=== PATIENT | male | born 1985 | race Caucasian/White ===

== ENCOUNTER 2017-05-21 16:42 | Emergency (ER) | payer SELFPAY ==
[2017-05-21 16:59] VITALS: BP 125/81; PULSE 85; TEMP 98.3; BMI 27.1
--- NOTE | 2017-05-21 17:01 | PDOC ---
History of Present Illness - General History Source: Patient Exam Limitations: No Limitations - History of Present Illness Initial Comments: 05/21/17 17:42 The patient is a 31 year old male with a significant past medical history of asthma, polysubstance abuse who presents to the ED with heroin overdose earlier today. Patient reports he was in his car when he injected himself with less than a bag of heroine. As per EMS, the patient loss consciousness and patient s friend called 911. EMS noted patient was apneic and cyanotic. Upon arrival to the ED, patient is breathing but tired. Patient states he was recently released from half-way and was clean from drugs while in half-way. Denies pain. Denies any other symptoms. <Dorothy Naylor - Last Filed: 05/21/17 17:42> - General History Source: Patient, EMS, Other Exam Limitations: No Limitations <Jhonny Bee - Last Filed: 05/21/17 19:50> - General Stated Complaint: Overdose Time Seen by Provider: 05/21/17 16:49 Past History <Dorothy Naylor - Last Filed: 05/21/17 17:42> - Past Medical History Anemia: No Asthma: No Cancer: No Cardiac Disorders: No CVA: No COPD: No Diabetes: No GI Disorders: No Disorders: No HTN: No Hypercholesterolemia: No Kidney Stones: No Liver Disease: No Suicide Attempt (Hx): Yes (ATTEMPTED HANGING SELG BUT FAILED IN 2001; DENIES S/ H IDEATION TODAY.) Seizures: No Thyroid Disease: No - Surgical History Abdominal Surgery: Yes (UMBILICAL HERNIA REPAIR,LT. INGUINAL HERNIA REPAIR) Appendectomy: No Cardiac Surgery: No Cholecystectomy: No Lung Surgery: No Neurologic Surgery: No Orthopedic Surgery: No - Reproductive History Testicular Surgery: No - Psycho/Social/Smoking Cessation Hx Anxiety: Yes Suicidal Ideation: No Smoking History: Current every day smoker Have you smoked in the past 12 months: Yes Number of Cigarettes Smoked Daily: 10 Cigars Per Day: 0 'Breaking Loose' booklet given: 09/03/16 Hx Alcohol Use: Yes (BEER) Drug/Substance Use Hx: Yes (COCAINE) Substance Use Type: Alcohol (beer 40 oz once twice a week.), Cocaine ($20 daily ), Heroin (started at age 24, on and off use, uses 2 bags a day), Tranquilizers Hx Substance Use Treatment: Yes ([facility]-DETOX/[facility] REH[facility]) <Jhonny Bee - Last Filed: 05/21/17 19:50> - Past Medical History Allergies/Adverse Reactions: Allergies Allergy/AdvReac Type Severity Reaction Status Date / Time No Known Allergies Allergy Verified 05/21/17 16:51 Home Medications: Ambulatory Orders Fluoxetine HCl [Prozac -] 10 mg PO DAILY #30 capsule 09/17/16 Gabapentin [Neurontin -] 300 mg PO TID #90 capsule 09/17/16 Review of Systems - Review of Systems Able to Perform ROS?: Yes Comments:: 05/21/17 17:42 GENERAL/CONSTITUTIONAL: + heroine overdose with LOC. No fever or chills. No weakness. HEAD, EYES, EARS, NOSE AND THROAT: No change in vision. No ear pain or discharge. No sore throat. CARDIOVASCULAR: No chest pain or shortness of breath. RESPIRATORY: No cough, wheezing, or hemoptysis. GASTROINTESTINAL: No nausea, vomiting, diarrhea or constipation. GENITOURINARY: No dysuria, frequency, or change in urination. MUSCULOSKELETAL: No joint or muscle swelling or pain. No neck or back pain. SKIN: No rash NEUROLOGIC: No headache, vertigo, or change in strength/sensation. ENDOCRINE: No increased thirst. No abnormal weight change. HEMATOLOGIC/LYMPHATIC: No anemia, easy bleeding, or history of blood clots. ALLERGIC/IMMUNOLOGIC: No hives or skin allergy. All Other Systems: Reviewed and Negative <Dorothy Naylor - Last Filed: 05/21/17 17:42> *Physical Exam - Vital Signs Last Vital Signs Temp Pulse Resp BP Pulse Ox 98.3 F 85 18 125/81 93 L 05/21/17 16:51 05/21/17 16:51 05/21/17 16:51 05/21/17 16:51 05/21/17 16:51 - Physical Exam Comments: 05/21/17 17:42 GENERAL: + speaking but sleepy appearing. HEAD: No signs of trauma EYES: PERRLA, EOMI, sclera anicteric, conjunctiva clear ENT: Auricles normal inspection, hearing grossly normal, nares patent, oropharynx clear without exudates. Moist mucosa NECK: Normal ROM, supple, no lymphadenopathy, JVD, or masses LUNGS: Breath sounds equal, clear to auscultation bilaterally. No wheezes, and no crackles HEART: Regular rate and rhythm, normal S1 and S2, no murmurs, rubs or gallops ABDOMEN: Soft, nontender, normoactive bowel sounds. No guarding, no rebound. No masses EXTREMITIES: Normal range of motion, no edema. No clubbing or cyanosis. No cords, erythema, or tenderness NEUROLOGICAL: Normal speech SKIN: Warm, Dry, normal turgor, no rashes or lesions noted. <Dorothy Naylor - Last Filed: 05/21/17 17:42> Heart Score/ECG Review #1 ECG reviewed & interpreted by me at: 18:10 05/21/17 19:50 NSR 67, no std/nadine, TWI III, normal axis, normal intervals, QTC 450 msec <Jhonny Bee - Last Filed: 05/21/17 19:50> ED Treatment Course - LABORATORY CBC & Chemistry Diagram: 05/21/17 17:05 05/21/17 17:05 <Dorothy Naylor - Last Filed: 05/21/17 17:42> - LABORATORY CBC & Chemistry Diagram: 05/21/17 17:33 05/21/17 17:33 <Jhonny Bee - Last Filed: 05/21/17 19:50> Medical Decision Making - Medical Decision Making 05/21/17 16:53 A portion of this note was written by the scribagatha, under my supervision. 31 year old male with history of asthma, polysubstance abuse presents with heroine overdose. The patient was recently released from half-way. Has been clean from drugs while in half-way. Today, he was in his car when he took less than a bag of heroine and injected himself. Went unconscious and pt's friend called 911. EMS noted the patient was apneic and cyanotic. EMS had given 0.4 mg narcan and then additional 1.0 mg narcan with good response. Pt is now breathing but tired. Denies pain. Denies injuries. Pt likely OD from heroine. Will observe on monitor and obtain labs. reassess. 05/21/17 19:44 CBC, BMP 05/21/17 17:33 05/21/17 17:33 CMP Sodium 140 mmol/L (136-145) 05/21/17 17:33 Potassium 4.0 mmol/L (3.5-5.1) 05/21/17 17:33 Chloride 105 mmol/L (98-107) 05/21/17 17:33 Carbon Dioxide 28 mmol/L (21-32) 05/21/17 17:33 Anion Gap 7 (8-16) L 05/21/17 17:33 BUN 22 mg/dL (7-18) H D 05/21/17 17:33 Creatinine 1.0 mg/dL (0.7-1.3) 05/21/17 17:33 Creat Clearance w eGFR > 60 (>60) 05/21/17 17:33 Random Glucose 164 mg/dL (74-106) H D 05/21/17 17:33 Calcium 8.2 mg/dL (8.5-10.1) L 05/21/17 17:33 Total Bilirubin 0.6 mg/dL (0.2-1.0) D 05/21/17 17:33 AST 47 U/L (15-37) H D 05/21/17 17:33 ALT 95 U/L (12-78) H D 05/21/17 17:33 Alkaline Phosphatase 59 U/L (45-117) 05/21/17 17:33 Creatine Kinase 190 IU/L (39-308) 05/21/17 18:26 Creatine Kinase Index 0.9 % (0.0-5.0) 05/21/17 17:33 CK-MB (CK-2) 1.713 ng/mL (0.5-3.6) 05/21/17 17:33 Troponin I 0.12 ng/ml (0.00-0.05) H D 05/21/17 18:26 Total Protein 7.2 g/dl (6.4-8.2) 05/21/17 17:33 Albumin 4.0 g/dl (3.4-5.0) 05/21/17 17:33 The patient has had initial troponin 0.07. His urine toxicology screen was positive for cocaine. The patient states that he thinks the heroin was cut with cocaine. We sent a repeat troponin which was 0.12. I had advised that the patient be admitted to the hospital given this is cocaine chest pain and concern for coronary vasospasm. However, after lengthy discussion with the patient and his mother, the patient insists that he would like to go home. He has no chest pain and does not want to stay in the hospital. I advised that myocardial infarction and can potentially occur these risks. However, the patient is alert and awake and has capacity. After discussion of risks, patient is able to verbalize the risks back to me. I will have the patient sign out AGAINST MEDICAL ADVICE. He will go home with his mother. <Jhonny Bee - Last Filed: 05/21/17 19:50> *DC/Admit/Observation/Transfer - Attestations Scribe Attestion: 05/21/17 17:43 Documentation prepared by Dorothy Naylor, acting as medical assistant per diem for Jhonny Bee MD <Dorothy Naylor - Last Filed: 05/21/17 17:42> - Discharge Dispostion Admit: No <Jhonny Bee - Last Filed: 05/21/17 19:50> Diagnosis at time of Disposition: Elevated troponin, Left against medical advice Drug overdose Qualifiers: Encounter type: initial encounter Injury intent: accidental or unintentional Qualified Code(s): T50.901A - Poisoning by unspecified drugs, medicaments and biological substances, accidental (unintentional), initial encounter - Discharge Dispostion Disposition: AGAINST MEDICAL ADVICE Condition at time of disposition: Stable - Patient Instructions Printed Discharge Instructions: DI for Drug Overdose in Adults Additional Instructions: You are leaving against medical advice. Your initial troponin is 0.07 and your second troponin is 0.12. Given the circumstances, you are advised to be admitted. If you develop chest pain or shortness of breath or worsening of symptoms, please return to the ER.
[2017-05-21] MEDS ORDERED: ONDANSETRON 4 MG/2 ML VIAL ONE (17:04)
[2017-05-21 17:38] LABS: BASOPHIL 1.2 % (0-2.0); EOSINOPHIL 0.3 % (0-4.5); MCH 30.7 pg (25.7-33.7); MCHC 34.3 g/dl (32.0-35.9); MEAN CELL VOLUME 89.5 fl (80-96); MEAN PLT VOLUME 9.1 fl (7.5-11.1); NEUTROPHILS 89.4 % (42.8-82.8); PLATELET COUNT 173 K/MM3 (134-434); RDW 12.7 % (11.9-15.9)
[2017-05-21 18:12] LABS: ANION GAP 7 (8-16); BILIRUBIN,TOTAL 0.6 mg/dL (0.2-1.0); CALCIUM 8.2 mg/dL (8.5-10.1); CO2 28 mmol/L (21-32); GLUCOSE,RANDOM 164 mg/dL (74-106); SGOT/AST 47 U/L (15-37); SGPT/ALT 95 U/L (12-78); TOT PROT 7.2 g/dl (6.4-8.2)
[2017-05-21 18:15] LABS: ALK PHOS 59 U/L (45-117); CPK 179 IU/L (39-308); TROPONIN I 0.07 ng/ml (0.00-0.05)
[2017-05-21 18:45] LABS: URINE APPEARANCE CLEAR; URINE BILIRUBIN 1+ (NEGATIVE); URINE BLOOD NEGATIVE (NEGATIVE); URINE COLOR LT. YELLOW; URINE GLUCOSE (UA) NEGATIVE (NEGATIVE); URINE KETONE TRACE (NEGATIVE); URINE LEUK ESTERASE NEGATIVE (NEGATIVE); URINE NITRITE NEGATIVE (NEGATIVE); URINE UROBILINOGEN 0.2 mg/dL (0.2-1.0)
[2017-05-21 18:46] LABS: URINE PROTEIN 1+ (NEGATIVE)
[2017-05-21 19:01] LABS: URINE BACTERIA RARE /hpf (NONE SEEN); URINE MUCUS RARE; URINE RBC 1 /hpf (0-3); URINE WBC 2 /hpf (3-5)
[2017-05-21 19:34] LABS: TROPONIN I 0.12 ng/ml (0.00-0.05)
[2017-05-21 19:36] LABS: URINE MARIJUANA THC NEGATIVE ng/ml (CUTOFF=50)
--- NOTE | 2017-05-22 10:24 | EKG ---
Test Reason : Blood Pressure : / mmHG Vent. Rate : 067 BPM Atrial Rate : 067 BPM P-R Int : 140 ms QRS Dur : 098 ms QT Int : 426 ms P-R-T Axes : 037 055 019 degrees QTc Int : 450 ms NORMAL SINUS RHYTHM NON-SPECIFIC INTRA-VENTRICULAR CONDUCTION DELAY NO PREVIOUS ECGS AVAILABLE Confirmed by SEDRICK BEAN MD ([id number]) on 05/22/2017 10:24:02 AM Referred By: Confirmed By:SEDRICK BEAN MD
== END 2017-05-21 19:51 | disposition left against medical advice (07) ==
LOC: JER 16:42
DX: T40.1X1A Poisoning by heroin, accidental (unintentional), initial encounter (principal); R77.8 Other specified abnormalities of plasma proteins; Y92.89 Other specified places as the place of occurrence of the external cause; F17.210 Nicotine dependence, cigarettes, uncomplicated; J45.909 Unspecified asthma, uncomplicated; Z91.5 Personal history of self-harm
CPT/HCPCS: 36415; 80053; 80307; 81003; 81015; 82553; 84484; 85025; 93005; 93010; 99284-25

== ENCOUNTER 2017-07-13 12:01 | Inpatient (IN) | payer SELFPAY ==
[2017-07-13 15:37] VITALS: BMI 27.6
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
[2017-07-13] MEDS ORDERED: MAGNESIUM CITRATE 300 ML BOTTLE PO PRN (20:23)
[2017-07-13] MEDS ORDERED: METHADONE HCL 10 MG TABLET (FOR DETOX USE ONLY) PO ONE ×2 (20:23→23:00)
[2017-07-13] MEDS ORDERED: guaiFENesin/D-METHORPHAN HB 10 ML UNIT-DOSE CUPS PO PRN (20:23)
[2017-07-13] MEDS ORDERED: IBUPROFEN 400 MG TABLET (FP) PO PRN (20:23)
[2017-07-13] MEDS ORDERED: MAG HYDROX/AL HYDROX/SIMETH 30 ML UNIT-DOSE CUP PO PRN (20:23)
[2017-07-13] MEDS ORDERED: MENTHOL/PHENOL 1 EACH UD MM PRN (20:23)
[2017-07-13] MEDS ORDERED: MAGNESIUM HYDROX 2400MG/30ML ORAL SUSPENSION 30 ML CUP PO PRN (20:23)
[2017-07-13] MEDS ORDERED: NICOTINE POLACRILEX 2 MG GUM BUC PRN (20:23)
[2017-07-13] MEDS ORDERED: LOPERAMIDE HCL 2 MG CAPSULE PO PRN (20:23)
[2017-07-13] MEDS ORDERED: ACETAMINOPHEN 325 MG TABLET (FP) PO PRN (20:23)
[2017-07-13] MEDS ORDERED: P-EPHED 60MG/TRIPROLIDI 2.5MG TABLET PO PRN (20:23)
[2017-07-13] MEDS ORDERED: AZITHROMYCIN 250 MG TABLET PO ONE (20:25)
[2017-07-13] MEDS: diazePAM 5 MG TABLET PO PRN (21:35)
[2017-07-13] MEDS: THIAMINE HCL 100 MG TABLET (FP) PO SCH (21:35)
[2017-07-13] MEDS: diphenhydrAMINE HCL 50 MG CAPSULE PO PRN (21:36)
[2017-07-13] MEDS ORDERED: ALBUTEROL SO4 18 GM HFA INHALER IH PRN (21:47)
[2017-07-13] MEDS ORDERED: ALBUTEROL SO4 18 GM HFA INHALER IH ONE (21:48)
[2017-07-13 23:17] LABS: URINE APPEARANCE CLEAR; URINE BILIRUBIN NEGATIVE (NEGATIVE); URINE BLOOD NEGATIVE (NEGATIVE); URINE COLOR YELLOW; URINE GLUCOSE (UA) NEGATIVE (NEGATIVE); URINE KETONE NEGATIVE (NEGATIVE); URINE NITRITE NEGATIVE (NEGATIVE); URINE PROTEIN NEGATIVE (NEGATIVE); URINE UROBILINOGEN NEGATIVE mg/dL (0.2-1.0)
[2017-07-14] MEDS: diazePAM 5 MG TABLET PO PRN ×4 (05:51→20:44)
[2017-07-14] MEDS ORDERED: METHADONE HCL 10 MG TABLET (FOR DETOX USE ONLY) PO ONE (10:00)
[2017-07-14 10:08] LABS: URINE LEUK ESTERASE Negative (NEGATIVE)
[2017-07-14 10:16] LABS: MCH 29.5 pg (25.7-33.7); MEAN CELL VOLUME 89.5 fl (80-96); MEAN PLT VOLUME 9.5 fl (7.5-11.1); PLATELET COUNT 165 K/MM3 (134-434); RDW 12.8 % (11.9-15.9); WHITE BLOOD COUNT 4.3 K/mm3 (4.0-10.0)
[2017-07-14 10:18] LABS: ALBUMIN 3.4 g/dl (3.4-5.0); ANION GAP 8 (8-16); BILIRUBIN,TOTAL 0.3 mg/dL (0.2-1.0); CO2 28 mmol/L (21-32); GLUCOSE,RANDOM 96 mg/dL (74-106); SGOT/AST 38 U/L (15-37); SGPT/ALT 70 U/L (12-78)
[2017-07-14 10:20] LABS: ALK PHOS 53 U/L (45-117); CALCIUM 8.7 mg/dL (8.5-10.1); CREATININE 0.8 mg/dL (0.7-1.3)
[2017-07-14] MEDS: NICOTINE 14 MG/24 HOURS TOPICAL PATCH TD SCH (10:28)
[2017-07-14] MEDS: PRENATAL VITAMINS W/ FOLIC ACID TABLET (FP) PO SCH (10:28)
[2017-07-14] MEDS: AZITHROMYCIN 250 MG TABLET PO SCH (10:29)
--- NOTE | 2017-07-14 11:13 | PN ---
BHS COWS - Scale Resting Pulse: 0= [place] 80 or Below Sweatin= Chills/Flushing Restless Observation: 3= Extraneous Movement Pupil Size: 2= Moderately Dilated Bone or Joint Aches: 4=Acute Joint/Muscle Pain Runny Nose/ Eye Tearin= Nasal Congestion GI Upset > 30mins: 1= Stomach Cramp Tremor Observation of Outstretched Hands: 1= Tremor [place] [employer], Not Seen Yawning Observation: 1= 1-2x During Session Anxiety or Irritability: 2=Irritable/Anxious Goose Flesh Skin: 0=Smooth Skin COWS Score: 16 BHS Progress Note (SOAP) Subjective: ANXIETY,SWEATS/CHILLS,NAUSEA,MUSCLE ACHES,FATIGUE,INTERMITTENT SLEEP. Objective: 07/14/17 11:11 Vital Signs Temperature 97.0 F L 07/14/17 10:02 Pulse Rate 78 07/14/17 10:02 Respiratory Rate 20 07/14/17 10:02 Blood Pressure 120/56 07/14/17 10:02 O2 Sat by Pulse Oximetry (%) Laboratory Last Values WBC 4.3 K/mm3 (4.0-10.0) D 07/14/17 07:00 RBC 4.68 M/mm3 (4.00-5.60) 07/14/17 07:00 Hgb 13.8 GM/dL (11.7-16.9) 07/14/17 07:00 Hct 41.8 % (35.4-49) 07/14/17 07:00 MCV 89.5 fl (80-96) 07/14/17 07:00 MCH 29.5 pg (25.7-33.7) 07/14/17 07:00 MCHC 33.0 g/dl (32.0-35.9) 07/14/17 07:00 RDW 12.8 % (11.9-15.9) 07/14/17 07:00 Plt Count 165 K/MM3 (134-434) 07/14/17 07:00 MPV 9.5 fl (7.5-11.1) 07/14/17 07:00 Sodium 139 mmol/L (136-145) 07/14/17 07:00 Potassium 3.7 mmol/L (3.5-5.1) 07/14/17 07:00 Chloride 103 mmol/L (98-107) 07/14/17 07:00 Carbon Dioxide 28 mmol/L (21-32) 07/14/17 07:00 Anion Gap 8 (8-16) 07/14/17 07:00 BUN 18 mg/dL (7-18) 07/14/17 07:00 Creatinine 0.8 mg/dL (0.7-1.3) 07/14/17 07:00 Creat Clearance w eGFR > 60 (>60) 07/14/17 07:00 Random Glucose 96 mg/dL (74-106) D 07/14/17 07:00 Calcium 8.7 mg/dL (8.5-10.1) 07/14/17 07:00 Total Bilirubin 0.3 mg/dL (0.2-1.0) D 07/14/17 07:00 AST 38 U/L (15-37) H 07/14/17 07:00 ALT 70 U/L (12-78) D 07/14/17 07:00 Alkaline Phosphatase 53 U/L (45-117) 07/14/17 07:00 Total Protein 7.0 g/dl (6.4-8.2) 07/14/17 07:00 Albumin 3.4 g/dl (3.4-5.0) 07/14/17 07:00 Urine Color Yellow 07/13/17 23:00 Urine Appearance Clear 07/13/17 23:00 Urine pH 5.0 (5.0-8.0) 07/13/17 23:00 Ur Specific [place] 1.025 (1.005-1.025) 07/13/17 23:00 Urine Protein Negative (NEGATIVE) 07/13/17 23:00 Urine Glucose (UA) Negative (NEGATIVE) 07/13/17 23:00 Urine Ketones Negative (NEGATIVE) 07/13/17 23:00 Urine Blood Negative (NEGATIVE) 07/13/17 23:00 Urine Nitrite Negative (NEGATIVE) 07/13/17 23:00 Urine Bilirubin Negative (NEGATIVE) 07/13/17 23:00 Urine Urobilinogen Negative mg/dL (0.2-1.0) 07/13/17 23:00 Ur Leukocyte Esterase Negative (NEGATIVE) 07/13/17 23:00 Assessment: 07/14/17 11:12 WITHDRAWAL SX Plan: CONTINUE DETOX ZOFRAN PRN DIRECTED FLEXERIL 10 MG PO TID
[2017-07-14] MEDS ORDERED: ONDANSETRON *ODT* 4 MG TABLET SL PRN (11:16)
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
[2017-07-14] MEDS: CYCLOBENZAPRINE HCL 10 MG TABLET (FP) PO SCH ×2 (14:36→22:03)
[2017-07-14] MEDS: SERTRALINE HCL 50 MG TABLET (FP) PO SCH (14:36)
[2017-07-14] MEDS ORDERED: ZOLPIDEM TARTRATE 10 MG TABLET (PARK CARE ONLY) PO PRN (22:00)
[2017-07-14] MEDS: diphenhydrAMINE HCL 50 MG CAPSULE PO PRN (22:04)
[2017-07-14] MEDS: THIAMINE HCL 100 MG TABLET (FP) PO SCH (22:04)
[2017-07-15] MEDS: diazePAM 5 MG TABLET PO PRN ×3 (05:42→22:06)
[2017-07-15] MEDS: CYCLOBENZAPRINE HCL 10 MG TABLET (FP) PO SCH ×3 (05:43→22:06)
[2017-07-15] MEDS: PRENATAL VITAMINS W/ FOLIC ACID TABLET (FP) PO SCH (10:40)
[2017-07-15] MEDS: AZITHROMYCIN 250 MG TABLET PO SCH (10:40)
[2017-07-15] MEDS: NICOTINE 14 MG/24 HOURS TOPICAL PATCH TD SCH (10:40)
[2017-07-15] MEDS: SERTRALINE HCL 50 MG TABLET (FP) PO SCH (10:40)
--- NOTE | 2017-07-15 10:43 | EKG ---
Test Reason : Blood Pressure : / mmHG Vent. Rate : 075 BPM Atrial Rate : 075 BPM P-R Int : 140 ms QRS Dur : 098 ms QT Int : 382 ms P-R-T Axes : 049 064 047 degrees QTc Int : 426 ms NORMAL SINUS RHYTHM INCOMPLETE RIGHT BUNDLE BRANCH BLOCK BORDERLINE ECG WHEN COMPARED WITH ECG OF 21-MAY-2017 18:08, NO SIGNIFICANT CHANGE WAS FOUND Confirmed by YADY GOOD MD ([id number]) on 07/15/2017 10:43:31 AM Referred By: Confirmed By:YADY GOOD MD
--- NOTE | 2017-07-15 11:13 | PN ---
BHS COWS - Scale Resting Pulse: 1= [place] 81-100 Sweatin= Chills/Flushing Restless Observation: 3= Extraneous Movement Pupil Size: 0= Normal to Room Light Bone or Joint Aches: 4=Acute Joint/Muscle Pain Runny Nose/ Eye Tearin= Nasal Congestion GI Upset > 30mins: 1= Stomach Cramp Tremor Observation of Outstretched Hands: 1= Tremor [place], Not Seen Yawning Observation: 2= >3x During Session Anxiety or Irritability: 2=Irritable/Anxious Goose Flesh Skin: 0=Smooth Skin COWS Score: 16 BHS Progress Note (SOAP) Subjective: IRRITABILITY,MUSCLE ACHES,FATIGUE. Objective: 07/15/17 11:12 Vital Signs Temperature 97.6 F 07/15/17 09:53 Pulse Rate 77 07/15/17 09:53 Respiratory Rate 18 07/15/17 09:53 Blood Pressure 108/76 07/15/17 09:53 O2 Sat by Pulse Oximetry (%) Laboratory Last Values WBC 4.3 K/mm3 (4.0-10.0) D 07/14/17 07:00 RBC 4.68 M/mm3 (4.00-5.60) 07/14/17 07:00 Hgb 13.8 GM/dL (11.7-16.9) 07/14/17 07:00 Hct 41.8 % (35.4-49) 07/14/17 07:00 MCV 89.5 fl (80-96) 07/14/17 07:00 MCH 29.5 pg (25.7-33.7) 07/14/17 07:00 MCHC 33.0 g/dl (32.0-35.9) 07/14/17 07:00 RDW 12.8 % (11.9-15.9) 07/14/17 07:00 Plt Count 165 K/MM3 (134-434) 07/14/17 07:00 MPV 9.5 fl (7.5-11.1) 07/14/17 07:00 Sodium 139 mmol/L (136-145) 07/14/17 07:00 Potassium 3.7 mmol/L (3.5-5.1) 07/14/17 07:00 Chloride 103 mmol/L (98-107) 07/14/17 07:00 Carbon Dioxide 28 mmol/L (21-32) 07/14/17 07:00 Anion Gap 8 (8-16) 07/14/17 07:00 BUN 18 mg/dL (7-18) 07/14/17 07:00 Creatinine 0.8 mg/dL (0.7-1.3) 07/14/17 07:00 Creat Clearance w eGFR > 60 (>60) 07/14/17 07:00 Random Glucose 96 mg/dL (74-106) D 07/14/17 07:00 Calcium 8.7 mg/dL (8.5-10.1) 07/14/17 07:00 Total Bilirubin 0.3 mg/dL (0.2-1.0) D 07/14/17 07:00 AST 38 U/L (15-37) H 07/14/17 07:00 ALT 70 U/L (12-78) D 07/14/17 07:00 Alkaline Phosphatase 53 U/L (45-117) 07/14/17 07:00 Total Protein 7.0 g/dl (6.4-8.2) 07/14/17 07:00 Albumin 3.4 g/dl (3.4-5.0) 07/14/17 07:00 Urine Color Yellow 07/13/17 23:00 Urine Appearance Clear 07/13/17 23:00 Urine pH 5.0 (5.0-8.0) 07/13/17 23:00 Ur Specific [place] 1.025 (1.005-1.025) 07/13/17 23:00 Urine Protein Negative (NEGATIVE) 07/13/17 23:00 Urine Glucose (UA) Negative (NEGATIVE) 07/13/17 23:00 Urine Ketones Negative (NEGATIVE) 07/13/17 23:00 Urine Blood Negative (NEGATIVE) 07/13/17 23:00 Urine Nitrite Negative (NEGATIVE) 07/13/17 23:00 Urine Bilirubin Negative (NEGATIVE) 07/13/17 23:00 Urine Urobilinogen Negative mg/dL (0.2-1.0) 07/13/17 23:00 Ur Leukocyte Esterase Negative (NEGATIVE) 07/13/17 23:00 RPR Titer Nonreactive (NONREACTIVE) 07/14/17 07:00 Assessment: 07/15/17 11:12 WITHDRAWAL SX Plan: CONTINUE DETOX
[2017-07-15] MEDS: THIAMINE HCL 100 MG TABLET (FP) PO SCH (22:06)
[2017-07-16] MEDS: CYCLOBENZAPRINE HCL 10 MG TABLET (FP) PO SCH (06:31)
[2017-07-16 09:42] VITALS: BP 117/78; PULSE 73; TEMP 96.3
[2017-07-16] MEDS ORDERED: METHADONE HCL 5 MG TABLET (FOR DETOX USE ONLY) PO ONE (10:00)
[2017-07-16] MEDS: diazePAM 5 MG TABLET PO PRN (10:30)
[2017-07-16] MEDS: PRENATAL VITAMINS W/ FOLIC ACID TABLET (FP) PO SCH (10:33)
[2017-07-16] MEDS: SERTRALINE HCL 50 MG TABLET (FP) PO SCH (10:33)
[2017-07-16] MEDS: NICOTINE 14 MG/24 HOURS TOPICAL PATCH TD SCH (10:34)
--- NOTE | 2017-07-16 10:45 | DS ---
[facility] Detox Discharge Summary Admission Date: 07/13/17 Discharge Date: 07/16/17 - History Present History: Opioid Dependence Additional Comments: DECLINED TO COMPLETE DETOX STATING 'I HAVE THINGS TO DO". ALERT O X 3. NAD. Pertinent Past History: ASTHMA HEP C HX ADHD HX GURDEEP - Physical Exam Results Vital Signs: Vital Signs Temperature 96.3 F L 07/16/17 09:41 Pulse Rate 73 07/16/17 09:41 Respiratory Rate 18 07/16/17 09:41 Blood Pressure 117/78 07/16/17 09:41 O2 Sat by Pulse Oximetry (%) Pertinent Admission Physical Exam Findings: WITHDRAWAL SX Laboratory Last Values WBC 4.3 K/mm3 (4.0-10.0) D 07/14/17 07:00 RBC 4.68 M/mm3 (4.00-5.60) 07/14/17 07:00 Hgb 13.8 GM/dL (11.7-16.9) 07/14/17 07:00 Hct 41.8 % (35.4-49) 07/14/17 07:00 MCV 89.5 fl (80-96) 07/14/17 07:00 MCH 29.5 pg (25.7-33.7) 07/14/17 07:00 MCHC 33.0 g/dl (32.0-35.9) 07/14/17 07:00 RDW 12.8 % (11.9-15.9) 07/14/17 07:00 Plt Count 165 K/MM3 (134-434) 07/14/17 07:00 MPV 9.5 fl (7.5-11.1) 07/14/17 07:00 Sodium 139 mmol/L (136-145) 07/14/17 07:00 Potassium 3.7 mmol/L (3.5-5.1) 07/14/17 07:00 Chloride 103 mmol/L (98-107) 07/14/17 07:00 Carbon Dioxide 28 mmol/L (21-32) 07/14/17 07:00 Anion Gap 8 (8-16) 07/14/17 07:00 BUN 18 mg/dL (7-18) 07/14/17 07:00 Creatinine 0.8 mg/dL (0.7-1.3) 07/14/17 07:00 Creat Clearance w eGFR > 60 (>60) 07/14/17 07:00 Random Glucose 96 mg/dL (74-106) D 07/14/17 07:00 Calcium 8.7 mg/dL (8.5-10.1) 07/14/17 07:00 Total Bilirubin 0.3 mg/dL (0.2-1.0) D 07/14/17 07:00 AST 38 U/L (15-37) H 07/14/17 07:00 ALT 70 U/L (12-78) D 07/14/17 07:00 Alkaline Phosphatase 53 U/L (45-117) 07/14/17 07:00 Total Protein 7.0 g/dl (6.4-8.2) 07/14/17 07:00 Albumin 3.4 g/dl (3.4-5.0) 07/14/17 07:00 Urine Color Yellow 07/13/17 23:00 Urine Appearance Clear 07/13/17 23:00 Urine pH 5.0 (5.0-8.0) 07/13/17 23:00 Ur Specific [place] 1.025 (1.005-1.025) 07/13/17 23:00 Urine Protein Negative (NEGATIVE) 07/13/17 23:00 Urine Glucose (UA) Negative (NEGATIVE) 07/13/17 23:00 Urine Ketones Negative (NEGATIVE) 07/13/17 23:00 Urine Blood Negative (NEGATIVE) 07/13/17 23:00 Urine Nitrite Negative (NEGATIVE) 07/13/17 23:00 Urine Bilirubin Negative (NEGATIVE) 07/13/17 23:00 Urine Urobilinogen Negative mg/dL (0.2-1.0) 07/13/17 23:00 Ur Leukocyte Esterase Negative (NEGATIVE) 07/13/17 23:00 RPR Titer Nonreactive (NONREACTIVE) 07/14/17 07:00 - Treatment Hospital Course: Discharged Condition Good - Medication Discharge Medications: Ambulatory Orders Fluoxetine HCl [Prozac -] 10 mg PO DAILY #30 capsule 09/17/16 Gabapentin [Neurontin -] 300 mg PO TID #90 capsule 09/17/16 - Diagnosis (1) Nicotine dependence Status: Active (2) Opioid dependence with withdrawal Status: Acute (3) Hepatitis C carrier Status: Chronic (4) Asthma Status: Chronic Qualifiers: Asthma severity: moderate Asthma persistence: persistent Asthma complication type: uncomplicated Qualified Code(s): J45.40 - Moderate persistent asthma, uncomplicated; J45.40 - Moderate persistent asthma, uncomplicated; J45.40 - Moderate persistent asthma, uncomplicated - AMA Did Patient Leave Against Medical Advice: Yes (AMA)
== END 2017-07-16 10:46 | disposition left against medical advice (07) | DRG 770 ==
LOC: YASAS 12:01 → Y3N 19:59
PROVIDERS: ADMIT Internal Medicine; ATTEND Internal Medicine
PROC: HZ2ZZZZ Detoxification Services for Substance Abuse Treatment (ICD-10-PCS; principal; 2017-07-13)
DX: F11.23 Opioid dependence with withdrawal (principal); F17.210 Nicotine dependence, cigarettes, uncomplicated; F41.9 Anxiety disorder, unspecified; F90.9 Attention-deficit hyperactivity disorder, unspecified type; J20.9 Acute bronchitis, unspecified; J45.40 Moderate persistent asthma, uncomplicated; B18.2 Chronic viral hepatitis C; Z91.5 Personal history of self-harm
CPT/HCPCS: 36415; 80053; 81003; 85027; 86593; 93005; 93010

== ENCOUNTER 2020-10-08 08:28 | Inpatient (IN) | payer OTHER ==
[2020-10-08 09:24] VITALS: BMI 29.2
[2020-10-08] MEDS ORDERED: MAGNESIUM CITRATE 300 ML BOTTLE PO PRN (09:34)
[2020-10-08] MEDS ORDERED: IBUPROFEN 400 MG TABLET (FP) PO PRN (09:34)
[2020-10-08] MEDS ORDERED: BISMUTH SUBSALICYLATE 262 MG/15 ML BTL PO PRN (09:34)
[2020-10-08] MEDS ORDERED: ACETAMINOPHEN 325 MG TABLET (FP) PO PRN ×2 (09:34)
[2020-10-08] MEDS ORDERED: MAG HYDROX/AL HYDROX/SIMETH 30 ML UNIT-DOSE CUP PO PRN (09:34)
[2020-10-08] MEDS ORDERED: ONDANSETRON *ODT* 4 MG TABLET SL PRN (09:34)
[2020-10-08] MEDS ORDERED: NICOTINE POLACRILEX 2 MG GUM BUC PRN (09:34)
[2020-10-08] MEDS ORDERED: MAGNESIUM HYDROX 2400MG/30ML ORAL SUSPENSION 30 ML CUP PO PRN (09:34)
[2020-10-08] MEDS ORDERED: METHOCARBAMOL 500 MG TABLET PO PRN (09:34)
[2020-10-08] MEDS ORDERED: LORazepam 1 MG TABLET PO PRN (09:34)
[2020-10-08] MEDS ORDERED: MENTHOL/PHENOL 1 EACH UD MM PRN (09:34)
[2020-10-08] MEDS: hydrOXYzine PAMOATE 25 MG CAPSULE (FP) PO SCH ×4 (11:08→22:12)
[2020-10-08] MEDS: LORazepam 2 MG TABLET PO SCH ×3 (11:09→22:12)
[2020-10-08] MEDS: NICOTINE 14 MG/24 HOURS TOPICAL PATCH TD SCH (11:11)
[2020-10-08] MEDS: PRENATAL VITAMINS W/ FOLIC ACID TABLET (FP) PO SCH (11:11)
[2020-10-08] MEDS ORDERED: MELATONIN 5 MG TABLETS PO SCH (22:00)
[2020-10-08] MEDS: SUVOREXANT 10 MG TABLET PO PRN (22:12)
[2020-10-08] MEDS: THIAMINE HCL 100 MG TABLET (FP) PO SCH (22:12)
[2020-10-09] MEDS: hydrOXYzine PAMOATE 25 MG CAPSULE (FP) PO SCH (05:48)
[2020-10-09] MEDS: LORazepam 2 MG TABLET PO SCH ×4 (05:48→22:07)
[2020-10-09] MEDS ORDERED: METHADONE HCL 40 MG DISPERSABLE TABLET PO ONE ×2 (09:15→10:00)
[2020-10-09] MEDS: NICOTINE 14 MG/24 HOURS TOPICAL PATCH TD SCH (10:30)
[2020-10-09] MEDS: PRENATAL VITAMINS W/ FOLIC ACID TABLET (FP) PO SCH (10:30)
[2020-10-09] MEDS: hydrOXYzine PAMOATE 50 MG CAPSULE (FP) PO SCH ×4 (10:30→22:07)
[2020-10-09 10:51] LABS: POTASSIUM 4.3 mmol/L (3.5-5.1)
[2020-10-09 10:52] LABS: HEMATOCRIT 40.4 % (35.4-49); HEMOGLOBIN 13.5 GM/dL (11.7-16.9); MCH 28.4 pg (25.7-33.7); MCHC 33.4 g/dl (32.0-35.9); RBC 4.75 M/mm3 (4.00-5.60); RDW 14.8 % (11.9-15.9); WHITE BLOOD COUNT 3.8 K/mm3 (4.0-10.0)
[2020-10-09 10:57] LABS: BLOOD UREA NITROGEN 15.5 mg/dL (7-18); CALCIUM 9.1 mg/dL (8.5-10.1)
[2020-10-09 10:58] LABS: ALBUMIN 3.7 g/dl (3.4-5.0)
[2020-10-09 11:00] LABS: CREATININE 0.9 mg/dL (0.55-1.3)
[2020-10-09 11:01] LABS: BILIRUBIN,TOTAL 0.8 mg/dL (0.2-1); TOT PROT 7.6 g/dl (6.4-8.2)
[2020-10-09 11:09] LABS: MEAN PLT VOLUME 9.8 fl (7.5-11.1); PLATELET COUNT 260 K/MM3 (134-434)
[2020-10-09 12:15] LABS: HIV INTERPRETATION NEGATIVE (NEGATIVE)
[2020-10-09] MEDS: THIAMINE HCL 100 MG TABLET (FP) PO SCH (22:07)
[2020-10-09] MEDS: SUVOREXANT 10 MG TABLET PO PRN (22:08)
[2020-10-10] MEDS: hydrOXYzine PAMOATE 50 MG CAPSULE (FP) PO SCH ×3 (01:46→10:00)
[2020-10-10] MEDS: LORazepam 1 MG TABLET PO SCH ×2 (05:40→10:00)
[2020-10-10] MEDS ORDERED: METHADONE HCL 40 MG DISPERSABLE TABLET PO SCH (06:00)
[2020-10-10 08:46] VITALS: BP 125/90; PULSE 118; TEMP 96.1
[2020-10-10] MEDS: PRENATAL VITAMINS W/ FOLIC ACID TABLET (FP) PO SCH (10:00)
[2020-10-10] MEDS: NICOTINE 14 MG/24 HOURS TOPICAL PATCH TD SCH (10:00)
[2020-10-11] MEDS ORDERED: LORazepam 0.5 MG TABLET PO PRN
[2020-10-11] MEDS ORDERED: LORazepam 0.5 MG TABLET PO SCH (05:00)
[2020-10-12] MEDS ORDERED: LORazepam 0.5 MG TABLET PO ONE (05:00)
== END 2020-10-10 10:34 | disposition home or self-care (01) | DRG 773 ==
LOC: YASAS 08:28 → Y6N 09:46
PROVIDERS: ADMIT Allergy & Immunology; ATTEND Allergy & Immunology
PROC: HZ2ZZZZ Detoxification Services for Substance Abuse Treatment (ICD-10-PCS; principal; 2020-10-08)
DX: F13.230 Sedative, hypnotic or anxiolytic dependence with withdrawal, uncomplicated (principal); F11.20 Opioid dependence, uncomplicated; F14.20 Cocaine dependence, uncomplicated; F16.20 Hallucinogen dependence, uncomplicated; F17.210 Nicotine dependence, cigarettes, uncomplicated; F41.1 Generalized anxiety disorder; F90.9 Attention-deficit hyperactivity disorder, unspecified type; F32.9 Major depressive disorder, single episode, unspecified; J45.40 Moderate persistent asthma, uncomplicated; B18.2 Chronic viral hepatitis C; Z62.810 Personal history of physical and sexual abuse in childhood; R63.4 Abnormal weight loss; Z68.29 Body mass index [BMI] 29.0-29.9, adult
CPT/HCPCS: 36415; 80053; 85027; 86780; 87389; C9803; U0003

== ENCOUNTER 2021-06-18 09:49 | Inpatient (IN) | payer OTHER ==
[2021-06-18 10:33] VITALS: BMI 25.0
[2021-06-18] MEDS ORDERED: P-EPHED 60MG/TRIPROLIDI 2.5MG TABLET PO PRN (11:29)
[2021-06-18] MEDS ORDERED: MAGNESIUM CITRATE 300 ML BOTTLE PO PRN (11:29)
[2021-06-18] MEDS ORDERED: MAGNESIUM HYDROX 2400MG/30ML ORAL SUSPENSION 30 ML CUP PO PRN (11:29)
[2021-06-18] MEDS ORDERED: guaiFENesin 200 MG/10 ML 10 ML UNIT-DOSE CUPS PO PRN (11:29)
[2021-06-18] MEDS ORDERED: MAG HYDROX/AL HYDROX/SIMETH 30 ML UNIT-DOSE CUP PO PRN (11:29)
[2021-06-18] MEDS ORDERED: ACETAMINOPHEN 325 MG TABLET (FP) PO PRN (11:29)
[2021-06-18] MEDS ORDERED: LOPERAMIDE HCL 2 MG CAPSULE PO PRN (11:29)
[2021-06-18] MEDS ORDERED: NICOTINE 7 MG/24 HOURS TOPICAL PATCH TD SCH (11:30)
[2021-06-18] MEDS: hydrOXYzine PAMOATE 25 MG CAPSULE (FP) PO SCH ×3 (16:39→23:06)
[2021-06-18] MEDS: PRENATAL VITAMINS W/ FOLIC ACID TABLET (FP) PO SCH (16:45)
[2021-06-18] MEDS: NICOTINE 14 MG/24 HOURS TOPICAL PATCH TD SCH (16:45)
[2021-06-18] MEDS: THIAMINE HCL 100 MG TABLET (FP) PO SCH (23:06)
[2021-06-18] MEDS: MELATONIN 5 MG TABLETS PO SCH (23:07)
[2021-06-19] MEDS: methaDONE HCL 40 MG DISPERSABLE TABLET PO SCH (06:33)
[2021-06-19] MEDS: hydrOXYzine PAMOATE 25 MG CAPSULE (FP) PO SCH ×2 (06:35→09:41)
[2021-06-19] MEDS: PRENATAL VITAMINS W/ FOLIC ACID TABLET (FP) PO SCH (09:41)
[2021-06-19] MEDS: NICOTINE 14 MG/24 HOURS TOPICAL PATCH TD SCH (09:41)
[2021-06-19 12:33] LABS: HEMATOCRIT 36.6 % (35.4-49); HEMOGLOBIN 12.3 GM/dL (11.7-16.9); MCH 27.6 pg (25.7-33.7); MCHC 33.7 g/dl (32.0-35.9); MEAN CELL VOLUME 81.9 fl (80-96); PLATELET COUNT 226 10^3/uL (134-434); RBC 4.47 M/mm3 (4.00-5.60); RDW 13.9 % (11.9-15.9); WHITE BLOOD COUNT 4.7 K/mm3 (4.0-10.0)
[2021-06-19 12:35] LABS: CALCIUM 8.3 mg/dL (8.5-10.1)
[2021-06-19 12:37] LABS: BLOOD UREA NITROGEN 11.1 mg/dL (7-18)
[2021-06-19 12:39] LABS: CREATININE 0.9 mg/dL (0.55-1.3)
[2021-06-19 12:40] LABS: BILIRUBIN,TOTAL 0.2 mg/dL (0.2-1); TOT PROT 6.6 g/dl (6.4-8.2)
[2021-06-19 12:59] LABS: SYPHILIS W/ RPR CONF NON-REACTIVE (NONREACTIVE)
[2021-06-19] MEDS: hydrOXYzine PAMOATE 25 MG CAPSULE (FP) PO PRN (21:10)
[2021-06-19] MEDS: THIAMINE HCL 100 MG TABLET (FP) PO SCH (21:10)
[2021-06-19] MEDS: MELATONIN 5 MG TABLETS PO SCH (23:22)
[2021-06-20] MEDS: methaDONE HCL 40 MG DISPERSABLE TABLET PO SCH (06:25)
[2021-06-20] MEDS: PRENATAL VITAMINS W/ FOLIC ACID TABLET (FP) PO SCH (09:53)
[2021-06-20] MEDS: NICOTINE 14 MG/24 HOURS TOPICAL PATCH TD SCH (09:53)
[2021-06-20 15:12] LABS: PH,URINE >= 9.0 (5.0-8.0); URINE APPEARANCE CLEAR; URINE BILIRUBIN NEGATIVE (NEGATIVE); URINE COLOR YELLOW; URINE GLUCOSE (UA) NEGATIVE (NEGATIVE); URINE KETONE NEGATIVE (NEGATIVE); URINE LEUK ESTERASE NEGATIVE (NEGATIVE); URINE NITRITE NEGATIVE (NEGATIVE); URINE PROTEIN NEGATIVE (NEGATIVE)
[2021-06-20] MEDS: THIAMINE HCL 100 MG TABLET (FP) PO SCH (22:01)
[2021-06-20] MEDS: MELATONIN 5 MG TABLETS PO SCH (22:02)
[2021-06-21] MEDS: methaDONE HCL 40 MG DISPERSABLE TABLET PO SCH (06:21)
[2021-06-21] MEDS: IBUPROFEN 400 MG TABLET (FP) PO PRN (09:49)
[2021-06-21] MEDS: PRENATAL VITAMINS W/ FOLIC ACID TABLET (FP) PO SCH (09:49)
[2021-06-21] MEDS: NICOTINE 14 MG/24 HOURS TOPICAL PATCH TD SCH (09:49)
[2021-06-21] MEDS: hydrOXYzine PAMOATE 25 MG CAPSULE (FP) PO PRN ×2 (09:49→21:00)
[2021-06-21] MEDS ORDERED: PT OWN MED DRAWER 7, Y5N ONE (11:23)
[2021-06-21] MEDS: METHOCARBAMOL 500 MG TABLET PO PRN (11:25)
[2021-06-21] MEDS: LIDOCAINE 5% TOPICAL PATCH TP SCH (11:25)
[2021-06-21] MEDS: SUVOREXANT 10 MG TABLET PO PRN (20:59)
[2021-06-21] MEDS: THIAMINE HCL 100 MG TABLET (FP) PO SCH (21:00)
[2021-06-21] MEDS: LIDOCAINE PATCH REMOVAL MC SCH (23:33)
[2021-06-22] MEDS: methaDONE HCL 40 MG DISPERSABLE TABLET PO SCH (06:21)
[2021-06-22] MEDS: NICOTINE 10 MG CARTRIDGE (INHALER) IH PRN ×3 (09:02→21:10)
[2021-06-22] MEDS: PRENATAL VITAMINS W/ FOLIC ACID TABLET (FP) PO SCH (09:02)
[2021-06-22] MEDS: LIDOCAINE 5% TOPICAL PATCH TP SCH (09:02)
[2021-06-22] MEDS: NICOTINE 14 MG/24 HOURS TOPICAL PATCH TD SCH (09:02)
[2021-06-22] MEDS: hydrOXYzine PAMOATE 25 MG CAPSULE (FP) PO PRN ×2 (09:04→21:10)
[2021-06-22] MEDS: SUVOREXANT 10 MG TABLET PO PRN (21:09)
[2021-06-22] MEDS: THIAMINE HCL 100 MG TABLET (FP) PO SCH (21:09)
[2021-06-22] MEDS: LIDOCAINE PATCH REMOVAL MC SCH (23:22)
[2021-06-23] MEDS ORDERED: MASKS NR ONE (01:22)
[2021-06-23] MEDS: methaDONE HCL 40 MG DISPERSABLE TABLET PO SCH (06:22)
[2021-06-23] MEDS: hydrOXYzine PAMOATE 25 MG CAPSULE (FP) PO PRN ×2 (09:25→21:15)
[2021-06-23] MEDS: METHOCARBAMOL 500 MG TABLET PO PRN ×2 (09:26→21:15)
[2021-06-23] MEDS: LIDOCAINE 5% TOPICAL PATCH TP SCH (09:26)
[2021-06-23] MEDS: PRENATAL VITAMINS W/ FOLIC ACID TABLET (FP) PO SCH (09:26)
[2021-06-23] MEDS: NICOTINE 14 MG/24 HOURS TOPICAL PATCH TD SCH (09:26)
[2021-06-23] MEDS: THIAMINE HCL 100 MG TABLET (FP) PO SCH (21:15)
[2021-06-23] MEDS: SUVOREXANT 10 MG TABLET PO PRN (21:16)
[2021-06-23] MEDS: NICOTINE 10 MG CARTRIDGE (INHALER) IH PRN (21:17)
[2021-06-23] MEDS: LIDOCAINE PATCH REMOVAL MC SCH (21:31)
[2021-06-24] MEDS: methaDONE HCL 40 MG DISPERSABLE TABLET PO SCH (06:22)
[2021-06-24] MEDS: METHOCARBAMOL 500 MG TABLET PO PRN ×2 (08:31→21:11)
[2021-06-24] MEDS: IBUPROFEN 400 MG TABLET (FP) PO PRN (08:32)
[2021-06-24] MEDS: NICOTINE 10 MG CARTRIDGE (INHALER) IH PRN ×2 (08:46→21:12)
[2021-06-24] MEDS: LIDOCAINE 5% TOPICAL PATCH TP SCH (09:08)
[2021-06-24] MEDS: NICOTINE 14 MG/24 HOURS TOPICAL PATCH TD SCH (09:08)
[2021-06-24] MEDS: PRENATAL VITAMINS W/ FOLIC ACID TABLET (FP) PO SCH (09:08)
[2021-06-24] MEDS ORDERED: PT OWN MED DRAWER 7, Y5N ONE (20:36)
[2021-06-24] MEDS: METHYL SALICYLATE/MENTHOL OINT 30 GM TUBE TP SCH (21:07)
[2021-06-24] MEDS: SUVOREXANT 10 MG TABLET PO PRN (21:10)
[2021-06-24] MEDS: hydrOXYzine PAMOATE 25 MG CAPSULE (FP) PO PRN (21:11)
[2021-06-24] MEDS: LIDOCAINE PATCH REMOVAL MC SCH (21:11)
[2021-06-24] MEDS: THIAMINE HCL 100 MG TABLET (FP) PO SCH (21:11)
[2021-06-25] MEDS: methaDONE HCL 40 MG DISPERSABLE TABLET PO SCH (06:14)
[2021-06-25] MEDS: NICOTINE 10 MG CARTRIDGE (INHALER) IH PRN ×3 (06:15→21:33)
[2021-06-25] MEDS: NICOTINE 14 MG/24 HOURS TOPICAL PATCH TD SCH (10:15)
[2021-06-25] MEDS: LIDOCAINE 5% TOPICAL PATCH TP SCH (10:15)
[2021-06-25] MEDS: PRENATAL VITAMINS W/ FOLIC ACID TABLET (FP) PO SCH (10:16)
[2021-06-25] MEDS: METHOCARBAMOL 500 MG TABLET PO PRN ×2 (10:18→21:32)
[2021-06-25] MEDS: hydrOXYzine PAMOATE 25 MG CAPSULE (FP) PO PRN ×2 (10:18→21:33)
[2021-06-25] MEDS: THIAMINE HCL 100 MG TABLET (FP) PO SCH (21:32)
[2021-06-25] MEDS: traZODone HCL 50 MG TABLET (FP) PO SCH (21:32)
[2021-06-25] MEDS: METHYL SALICYLATE/MENTHOL OINT 30 GM TUBE TP SCH (21:35)
[2021-06-25] MEDS: LIDOCAINE PATCH REMOVAL MC SCH (21:36)
[2021-06-25] MEDS ORDERED: PT OWN MED DRAWER 7, Y5N ONE (21:36)
[2021-06-26] MEDS: methaDONE HCL 40 MG DISPERSABLE TABLET PO SCH (06:32)
[2021-06-26] MEDS: PRENATAL VITAMINS W/ FOLIC ACID TABLET (FP) PO SCH (09:39)
[2021-06-26] MEDS: NICOTINE 14 MG/24 HOURS TOPICAL PATCH TD SCH (09:39)
[2021-06-26] MEDS: LIDOCAINE 5% TOPICAL PATCH TP SCH (09:39)
[2021-06-26] MEDS: METHOCARBAMOL 500 MG TABLET PO PRN ×2 (09:41→21:03)
[2021-06-26] MEDS: NICOTINE 10 MG CARTRIDGE (INHALER) IH PRN ×3 (09:41→21:05)
[2021-06-26] MEDS: hydrOXYzine PAMOATE 25 MG CAPSULE (FP) PO PRN ×2 (09:41→21:03)
[2021-06-26] MEDS: THIAMINE HCL 100 MG TABLET (FP) PO SCH (21:03)
[2021-06-26] MEDS: traZODone HCL 50 MG TABLET (FP) PO SCH (21:03)
[2021-06-26] MEDS: METHYL SALICYLATE/MENTHOL OINT 30 GM TUBE TP SCH (21:04)
[2021-06-26] MEDS: LIDOCAINE PATCH REMOVAL MC SCH (21:05)
[2021-06-27] MEDS: methaDONE HCL 40 MG DISPERSABLE TABLET PO SCH (06:31)
[2021-06-27] MEDS: NICOTINE 10 MG CARTRIDGE (INHALER) IH PRN ×2 (06:32→21:52)
[2021-06-27] MEDS: PRENATAL VITAMINS W/ FOLIC ACID TABLET (FP) PO SCH (09:27)
[2021-06-27] MEDS: LIDOCAINE 5% TOPICAL PATCH TP SCH (09:27)
[2021-06-27] MEDS: METHOCARBAMOL 500 MG TABLET PO PRN ×2 (09:28→21:48)
[2021-06-27] MEDS: NICOTINE 14 MG/24 HOURS TOPICAL PATCH TD SCH (09:28)
[2021-06-27] MEDS: hydrOXYzine PAMOATE 25 MG CAPSULE (FP) PO PRN ×2 (09:30→21:49)
[2021-06-27] MEDS: traZODone HCL 50 MG TABLET (FP) PO SCH (21:48)
[2021-06-27] MEDS: THIAMINE HCL 100 MG TABLET (FP) PO SCH (21:49)
[2021-06-27] MEDS: METHYL SALICYLATE/MENTHOL OINT 30 GM TUBE TP SCH (21:50)
[2021-06-27] MEDS: LIDOCAINE PATCH REMOVAL MC SCH (21:50)
[2021-06-28] MEDS: methaDONE HCL 40 MG DISPERSABLE TABLET PO SCH (06:07)
[2021-06-28] MEDS: NICOTINE 10 MG CARTRIDGE (INHALER) IH PRN ×3 (06:08→21:08)
[2021-06-28] MEDS: LIDOCAINE 5% TOPICAL PATCH TP SCH (09:28)
[2021-06-28] MEDS: NICOTINE 14 MG/24 HOURS TOPICAL PATCH TD SCH (09:29)
[2021-06-28] MEDS: PRENATAL VITAMINS W/ FOLIC ACID TABLET (FP) PO SCH (09:29)
[2021-06-28] MEDS: hydrOXYzine PAMOATE 25 MG CAPSULE (FP) PO PRN (09:31)
[2021-06-28] MEDS: METHOCARBAMOL 500 MG TABLET PO PRN ×2 (09:31→21:07)
[2021-06-28] MEDS: THIAMINE HCL 100 MG TABLET (FP) PO SCH (21:07)
[2021-06-28] MEDS: traZODone HCL 50 MG TABLET (FP) PO SCH (21:07)
[2021-06-28] MEDS: METHYL SALICYLATE/MENTHOL OINT 30 GM TUBE TP SCH (21:10)
[2021-06-28] MEDS ORDERED: PT OWN MED DRAWER 7, Y5N ONE (21:10)
[2021-06-28] MEDS: LIDOCAINE PATCH REMOVAL MC SCH (21:58)
[2021-06-29] MEDS: methaDONE HCL 40 MG DISPERSABLE TABLET PO SCH (06:18)
[2021-06-29] MEDS: NICOTINE 10 MG CARTRIDGE (INHALER) IH PRN ×3 (06:19→21:59)
[2021-06-29] MEDS: PRENATAL VITAMINS W/ FOLIC ACID TABLET (FP) PO SCH (10:07)
[2021-06-29] MEDS: NICOTINE 14 MG/24 HOURS TOPICAL PATCH TD SCH (10:07)
[2021-06-29] MEDS: hydrOXYzine PAMOATE 25 MG CAPSULE (FP) PO PRN ×2 (10:07→21:58)
[2021-06-29] MEDS: LIDOCAINE 5% TOPICAL PATCH TP SCH (10:07)
[2021-06-29] MEDS: METHYL SALICYLATE/MENTHOL OINT 30 GM TUBE TP SCH (21:57)
[2021-06-29] MEDS: traZODone HCL 50 MG TABLET (FP) PO SCH (21:58)
[2021-06-29] MEDS: METHOCARBAMOL 500 MG TABLET PO PRN (21:58)
[2021-06-29] MEDS: LIDOCAINE PATCH REMOVAL MC SCH (21:58)
[2021-06-29] MEDS: THIAMINE HCL 100 MG TABLET (FP) PO SCH (22:10)
[2021-06-30] MEDS: methaDONE HCL 40 MG DISPERSABLE TABLET PO SCH (06:34)
[2021-06-30] MEDS: NICOTINE 10 MG CARTRIDGE (INHALER) IH PRN ×3 (06:36→21:09)
[2021-06-30] MEDS: PRENATAL VITAMINS W/ FOLIC ACID TABLET (FP) PO SCH (09:34)
[2021-06-30] MEDS: NICOTINE 14 MG/24 HOURS TOPICAL PATCH TD SCH (09:35)
[2021-06-30] MEDS: LIDOCAINE 5% TOPICAL PATCH TP SCH (09:35)
[2021-06-30] MEDS: METHOCARBAMOL 500 MG TABLET PO PRN ×2 (09:36→21:09)
[2021-06-30] MEDS: hydrOXYzine PAMOATE 25 MG CAPSULE (FP) PO PRN ×2 (09:36→21:09)
[2021-06-30] MEDS: METHYL SALICYLATE/MENTHOL OINT 30 GM TUBE TP SCH (21:08)
[2021-06-30] MEDS: traZODone HCL 50 MG TABLET (FP) PO SCH (21:09)
[2021-06-30] MEDS: LIDOCAINE PATCH REMOVAL MC SCH (21:09)
[2021-06-30] MEDS: THIAMINE HCL 100 MG TABLET (FP) PO SCH (21:10)
[2021-06-30] MEDS ORDERED: PT OWN MED DRAWER 7, Y5N ONE (22:13)
[2021-07-01] MEDS: methaDONE HCL 40 MG DISPERSABLE TABLET PO SCH (06:34)
[2021-07-01] MEDS: NICOTINE 10 MG CARTRIDGE (INHALER) IH PRN (06:35)
[2021-07-01] MEDS: LIDOCAINE 5% TOPICAL PATCH TP SCH (09:35)
[2021-07-01] MEDS: NICOTINE 14 MG/24 HOURS TOPICAL PATCH TD SCH (09:35)
[2021-07-01] MEDS: PRENATAL VITAMINS W/ FOLIC ACID TABLET (FP) PO SCH (09:35)
[2021-07-01] MEDS: hydrOXYzine PAMOATE 25 MG CAPSULE (FP) PO PRN (09:36)
[2021-07-02] MEDS: LIDOCAINE PATCH REMOVAL MC SCH ×2 (00:15→21:11)
[2021-07-02] MEDS: traZODone HCL 50 MG TABLET (FP) PO SCH ×2 (00:15→21:07)
[2021-07-02] MEDS: THIAMINE HCL 100 MG TABLET (FP) PO SCH ×2 (00:15→21:07)
[2021-07-02] MEDS: METHYL SALICYLATE/MENTHOL OINT 30 GM TUBE TP SCH ×2 (00:15→21:11)
[2021-07-02] MEDS: methaDONE HCL 40 MG DISPERSABLE TABLET PO SCH (06:03)
[2021-07-02] MEDS: NICOTINE 10 MG CARTRIDGE (INHALER) IH PRN ×3 (06:04→21:08)
[2021-07-02] MEDS: PRENATAL VITAMINS W/ FOLIC ACID TABLET (FP) PO SCH (10:21)
[2021-07-02] MEDS: LIDOCAINE 5% TOPICAL PATCH TP SCH (10:21)
[2021-07-02] MEDS: hydrOXYzine PAMOATE 25 MG CAPSULE (FP) PO PRN ×2 (10:22→21:07)
[2021-07-02] MEDS: NICOTINE 14 MG/24 HOURS TOPICAL PATCH TD SCH (10:22)
[2021-07-02] MEDS: METHOCARBAMOL 500 MG TABLET PO PRN (10:22)
[2021-07-02] MEDS ORDERED: PT OWN MED DRAWER 7, Y5N ONE (21:10)
[2021-07-03] MEDS: methaDONE HCL 40 MG DISPERSABLE TABLET PO SCH (06:12)
[2021-07-03] MEDS: LIDOCAINE 5% TOPICAL PATCH TP SCH (09:41)
[2021-07-03] MEDS: NICOTINE 14 MG/24 HOURS TOPICAL PATCH TD SCH (09:41)
[2021-07-03] MEDS: PRENATAL VITAMINS W/ FOLIC ACID TABLET (FP) PO SCH (09:41)
[2021-07-03] MEDS: hydrOXYzine PAMOATE 25 MG CAPSULE (FP) PO PRN ×2 (09:42→21:05)
[2021-07-03] MEDS: METHOCARBAMOL 500 MG TABLET PO PRN ×2 (09:42→21:05)
[2021-07-03] MEDS: NICOTINE 10 MG CARTRIDGE (INHALER) IH PRN ×2 (09:42→21:07)
[2021-07-03] MEDS: traZODone HCL 50 MG TABLET (FP) PO SCH (21:03)
[2021-07-03] MEDS: METHYL SALICYLATE/MENTHOL OINT 30 GM TUBE TP SCH (21:52)
[2021-07-03] MEDS: LIDOCAINE PATCH REMOVAL MC SCH (21:53)
[2021-07-03] MEDS: THIAMINE HCL 100 MG TABLET (FP) PO SCH (21:53)
[2021-07-04] MEDS: methaDONE HCL 40 MG DISPERSABLE TABLET PO SCH (06:34)
[2021-07-04] MEDS: NICOTINE 14 MG/24 HOURS TOPICAL PATCH TD SCH (09:29)
[2021-07-04] MEDS: LIDOCAINE 5% TOPICAL PATCH TP SCH (09:29)
[2021-07-04] MEDS: hydrOXYzine PAMOATE 25 MG CAPSULE (FP) PO PRN ×2 (09:30→21:11)
[2021-07-04] MEDS: METHOCARBAMOL 500 MG TABLET PO PRN ×2 (09:30→21:10)
[2021-07-04] MEDS: PRENATAL VITAMINS W/ FOLIC ACID TABLET (FP) PO SCH (09:30)
[2021-07-04] MEDS: traZODone HCL 50 MG TABLET (FP) PO SCH (21:10)
[2021-07-04] MEDS: NICOTINE 10 MG CARTRIDGE (INHALER) IH PRN (21:10)
[2021-07-04] MEDS: LIDOCAINE PATCH REMOVAL MC SCH (21:12)
[2021-07-04] MEDS: THIAMINE HCL 100 MG TABLET (FP) PO SCH (22:02)
[2021-07-04] MEDS: METHYL SALICYLATE/MENTHOL OINT 30 GM TUBE TP SCH (22:02)
[2021-07-05] MEDS: methaDONE HCL 40 MG DISPERSABLE TABLET PO SCH (06:36)
[2021-07-05] MEDS: NICOTINE 10 MG CARTRIDGE (INHALER) IH PRN ×4 (06:36→21:32)
[2021-07-05] MEDS: LIDOCAINE 5% TOPICAL PATCH TP SCH (09:59)
[2021-07-05] MEDS: PRENATAL VITAMINS W/ FOLIC ACID TABLET (FP) PO SCH (09:59)
[2021-07-05] MEDS: NICOTINE 14 MG/24 HOURS TOPICAL PATCH TD SCH (09:59)
[2021-07-05] MEDS: hydrOXYzine PAMOATE 25 MG CAPSULE (FP) PO PRN ×2 (10:01→21:31)
[2021-07-05] MEDS: METHOCARBAMOL 500 MG TABLET PO PRN ×2 (10:01→21:31)
[2021-07-05] MEDS ORDERED: PT OWN MED DRAWER 7, Y5N ONE (20:15)
[2021-07-05] MEDS: traZODone HCL 50 MG TABLET (FP) PO SCH (21:31)
[2021-07-05] MEDS: METHYL SALICYLATE/MENTHOL OINT 30 GM TUBE TP SCH (21:31)
[2021-07-05] MEDS: LIDOCAINE PATCH REMOVAL MC SCH (21:32)
[2021-07-05] MEDS: THIAMINE HCL 100 MG TABLET (FP) PO SCH (21:32)
[2021-07-06] MEDS: methaDONE HCL 40 MG DISPERSABLE TABLET PO SCH (06:14)
[2021-07-06] MEDS: NICOTINE 10 MG CARTRIDGE (INHALER) IH PRN ×2 (06:16→09:43)
[2021-07-06] MEDS: LIDOCAINE 5% TOPICAL PATCH TP SCH (09:42)
[2021-07-06] MEDS: NICOTINE 14 MG/24 HOURS TOPICAL PATCH TD SCH (09:42)
[2021-07-06] MEDS: hydrOXYzine PAMOATE 25 MG CAPSULE (FP) PO PRN (09:43)
[2021-07-06] MEDS: PRENATAL VITAMINS W/ FOLIC ACID TABLET (FP) PO SCH (09:43)
[2021-07-06] MEDS: METHYL SALICYLATE/MENTHOL OINT 30 GM TUBE TP SCH (23:04)
[2021-07-06] MEDS: LIDOCAINE PATCH REMOVAL MC SCH (23:05)
[2021-07-06] MEDS: THIAMINE HCL 100 MG TABLET (FP) PO SCH (23:05)
[2021-07-06] MEDS: traZODone HCL 50 MG TABLET (FP) PO SCH (23:05)
[2021-07-07] MEDS: methaDONE HCL 40 MG DISPERSABLE TABLET PO SCH (06:10)
[2021-07-07] MEDS: LIDOCAINE 5% TOPICAL PATCH TP SCH (09:26)
[2021-07-07] MEDS: NICOTINE 14 MG/24 HOURS TOPICAL PATCH TD SCH (09:26)
[2021-07-07] MEDS: PRENATAL VITAMINS W/ FOLIC ACID TABLET (FP) PO SCH (09:26)
[2021-07-07] MEDS: NICOTINE 10 MG CARTRIDGE (INHALER) IH PRN ×2 (09:26→21:11)
[2021-07-07] MEDS: hydrOXYzine PAMOATE 25 MG CAPSULE (FP) PO PRN (09:26)
[2021-07-07] MEDS: METHYL SALICYLATE/MENTHOL OINT 30 GM TUBE TP SCH (23:10)
[2021-07-07] MEDS: traZODone HCL 50 MG TABLET (FP) PO SCH (23:10)
[2021-07-07] MEDS: THIAMINE HCL 100 MG TABLET (FP) PO SCH (23:11)
[2021-07-07] MEDS: LIDOCAINE PATCH REMOVAL MC SCH (23:11)
[2021-07-08] MEDS: NICOTINE 10 MG CARTRIDGE (INHALER) IH PRN (06:10)
[2021-07-08] MEDS: methaDONE HCL 40 MG DISPERSABLE TABLET PO SCH (06:11)
[2021-07-08 07:31] VITALS: BP 111/74; PULSE 56; TEMP 97.4
[2021-07-08] MEDS ORDERED: PT OWN MED DRAWER 7, Y5N ONE (07:53)
== END 2021-07-08 09:16 | disposition home or self-care (01) | DRG 772 ==
LOC: YASAS 09:49 → Y3E 10:47
PROVIDERS: ADMIT Allergy & Immunology; ATTEND Allergy & Immunology
PROC: HZ42ZZZ Group Counseling for Substance Abuse Treatment, Cognitive-Behavioral (ICD-10-PCS; principal; 2021-06-18)
DX: F10.20 Alcohol dependence, uncomplicated (principal); F11.20 Opioid dependence, uncomplicated; F14.20 Cocaine dependence, uncomplicated; F13.20 Sedative, hypnotic or anxiolytic dependence, uncomplicated; F16.20 Hallucinogen dependence, uncomplicated; F17.210 Nicotine dependence, cigarettes, uncomplicated; F41.9 Anxiety disorder, unspecified; F32.9 Major depressive disorder, single episode, unspecified; F90.9 Attention-deficit hyperactivity disorder, unspecified type; J45.20 Mild intermittent asthma, uncomplicated; M54.50 Low back pain, unspecified; G89.29 Other chronic pain; Z86.19 Personal history of other infectious and parasitic diseases
CPT/HCPCS: 36415; 80053; 81003; 85025; 85027; 86780; 86803; 87522; 93005; 93010; 99282-25; C9803; U0003; U0005

== ENCOUNTER 2022-06-08 10:52 | Inpatient (IN) | payer OTHER ==
[2022-06-08] MEDS ORDERED: SODIUM CHLORIDE 0.9% 500 ML INFUS.BAG IV ONE (11:17)
[2022-06-08] MEDS ORDERED: ACETAMINOPHEN 1000 MG/100 ML BAG IVPB ONE (11:17)
[2022-06-08] MEDS ORDERED: ONDANSETRON 4 MG/2 ML VIAL IVPUSH ONE (11:17)
[2022-06-08] MEDS ORDERED: ACETAMINOPHEN INJECTION 100 ML IVPB ONE (12:08)
[2022-06-08] MEDS ORDERED: ONDANSETRON 4 MG/2 ML VIAL ONE (12:08)
[2022-06-08 12:34] LABS: HEMATOCRIT 37.4 % (35.4-49); HEMOGLOBIN 12.4 GM/dL (11.7-16.9); MCH 27.5 pg (25.7-33.7); MCHC 33.1 g/dl (32.0-35.9); MEAN CELL VOLUME 83.1 fl (80-96); MEAN PLT VOLUME 9.7 fl (7.5-11.1); PLATELET COUNT 159 10^3/uL (134-434); RDW 12.7 % (11.9-15.9); WHITE BLOOD COUNT 15.7 K/mm3 (4.0-10.0)
[2022-06-08] MEDS ORDERED: METOCLOPRAMIDE HCL INJECTION 10 MG/2 ML VIAL IVPB ONE (12:36)
[2022-06-08 12:44] LABS: INR 1.15 (0.83-1.09); PROTHROMBIN TIME (PATIENT) 13.2 SEC (9.7-13.0)
[2022-06-08 12:46] LABS: ACTIVATED PTT 27.1 SECONDS (25.2-36.5)
[2022-06-08] MEDS ORDERED: METOCLOPRAMIDE HCL INJECTION 10 MG/2 ML VIAL ONE (12:48)
[2022-06-08 12:49] LABS: BLOOD UREA NITROGEN 15.6 mg/dL (7-18); MAGNESIUM 1.8 mg/dL (1.8-2.4)
[2022-06-08 12:50] LABS: ALBUMIN 3.4 g/dl (3.4-5.0)
[2022-06-08 12:53] LABS: CREATININE 0.9 mg/dL (0.55-1.3)
[2022-06-08 12:54] LABS: BILIRUBIN,TOTAL 0.5 mg/dL (0.2-1)
[2022-06-08 12:56] LABS: TOT PROT 7.5 g/dl (6.4-8.2)
[2022-06-08 13:20] LABS: URINE APPEARANCE CLEAR; URINE BILIRUBIN NEGATIVE (NEGATIVE); URINE COLOR YELLOW; URINE GLUCOSE (UA) NEGATIVE (NEGATIVE); URINE KETONE 1+ (NEGATIVE); URINE LEUK ESTERASE NEGATIVE (NEGATIVE); URINE NITRITE NEGATIVE (NEGATIVE); URINE PROTEIN TRACE (NEGATIVE)
[2022-06-08 13:36] LABS: URINE BARBITURATES NEGATIVE (NEGATIVE)
[2022-06-08 13:37] LABS: URINE AMPHETAMINES NEGATIVE (NEGATIVE)
[2022-06-08 13:42] LABS: COCAINE, UR POSITIVE (NEGATIVE); METHADONE, UR POSITIVE (NEGATIVE); OPIATES, URI POSITIVE (NEGATIVE); PHENCYCLIDINE,URINE POSITIVE (NEGATIVE); URINE BENZODIAZEPINES POSITIVE (NEGATIVE)
[2022-06-08 13:51] LABS: ANISOCYTOSIS 0; MACROCYTOSIS 0
[2022-06-08] MEDS ORDERED: FAMOTIDINE 20 MG/50 ML IVPB 20 MG/50 ML MG IVPB ONE ×2 (14:38→15:27)
[2022-06-08] MEDS ORDERED: CEFTRIAXONE 2,000 MG in DEXTROSE 5%-WATER - 50 ML IVPB ONE (14:41)
[2022-06-08] MEDS ORDERED: VANCOMYCIN/WATER 2 GM/400 ML PREMIX BAG IVPB ONE (14:42)
[2022-06-08] MEDS ORDERED: CEFTRIAXONE 2 GM/100 ML BAG IVPB ONE (15:05)
[2022-06-08 19:56] LABS: CSF APPEARANCE TURBID (CLEAR); CSF COLOR PINK (COLORLESS); CSF WBC 4 mm3 (0-5)
[2022-06-08 21:57] LABS: BF GLUCOSE (CSF ONLY) 54 mg/dL (40-70)
[2022-06-08 23:00] VITALS: BMI 37.4
[2022-06-09] MEDS ORDERED: ONDANSETRON 4 MG/2 ML VIAL IVPUSH PRN (00:35)
[2022-06-09] MEDS: LACTATED RINGERS SOLUTION 1,000 ML IV SCH (01:37)
[2022-06-09] MEDS: PIPERACILLIN/TAZOB 3.375 GM 3.375 GM in DEXTROSE 5%-WATER - 50 ML IVPB SCH ×3 (02:19→17:42)
[2022-06-09] MEDS ORDERED: VANCOMYCIN/WATER 1,250 MG/250 ML BAG (RESTRICTED TO ID ONLY) IVPB ONE (05:00)
[2022-06-09] MEDS ORDERED: methaDONE HCL 10 MG TABLET PO SCH (07:45)
[2022-06-09 09:43] LABS: INR 1.1 (0.83-1.09); PROTHROMBIN TIME (PATIENT) 12.7 SEC (9.7-13.0)
[2022-06-09 09:45] LABS: ACTIVATED PTT 27.7 SECONDS (25.2-36.5)
[2022-06-09 09:53] LABS: HEMATOCRIT 41.1 % (35.4-49); HEMOGLOBIN 13.7 GM/dL (11.7-16.9); MCH 27.8 pg (25.7-33.7); MCHC 33.4 g/dl (32.0-35.9); MEAN CELL VOLUME 83.4 fl (80-96); MEAN PLT VOLUME 10.2 fl (7.5-11.1); PLATELET COUNT 133 10^3/uL (134-434); RBC 4.93 M/mm3 (4.00-5.60); RDW 12.7 % (11.9-15.9); WHITE BLOOD COUNT 8.1 K/mm3 (4.0-10.0)
[2022-06-09] MEDS: ENOXAPARIN NA (PORCINE) 40 MG/0.4 ML DISP.SYRIN SQ SCH (10:07)
[2022-06-09 10:18] LABS: ALBUMIN 3.2 g/dl (3.4-5.0); BLOOD UREA NITROGEN 11.8 mg/dL (7-18); CALCIUM 8.7 mg/dL (8.5-10.1); MAGNESIUM 1.7 mg/dL (1.8-2.4)
[2022-06-09 10:21] LABS: BILIRUBIN,DIRECT 0.2 mg/dL (0.0-0.2); CREATININE 0.8 mg/dL (0.55-1.3)
[2022-06-09 10:22] LABS: BILIRUBIN,TOTAL 0.4 mg/dL (0.2-1); TOT PROT 7.1 g/dl (6.4-8.2)
[2022-06-09] MEDS ORDERED: TRIMETHOBENZAMIDE HCL 200MG/2ML INJ IM PRN (10:22)
[2022-06-09 11:31] LABS: HIV INTERPRETATION NEGATIVE (NEGATIVE)
[2022-06-09] MEDS: ACETAMINOPHEN 325 MG TABLET (FP) PO PRN ×2 (11:59→22:30)
[2022-06-09 12:26] LABS: ANISOCYTOSIS 2+; MACROCYTOSIS 0; OVALOCYTE 2+; TEAR DROP CELLS 1+
[2022-06-09] MEDS: VANCOMYCIN/WATER 1250 MG 1,250 MG/250 ML BAG IVPB SCH (15:58)
[2022-06-10] MEDS: PIPERACILLIN/TAZOB 3.375 GM 3.375 GM in DEXTROSE 5%-WATER - 50 ML IVPB SCH ×2 (02:54→09:44)
[2022-06-10] MEDS: LACTATED RINGERS SOLUTION 1,000 ML IV SCH (04:18)
[2022-06-10] MEDS: VANCOMYCIN/WATER 1250 MG 1,250 MG/250 ML BAG IVPB SCH (04:18)
[2022-06-10 06:56] VITALS: BP 145/87; PULSE 107; RESP 20; TEMP 98.5
[2022-06-10] MEDS ORDERED: PIPERACILLIN/TAZOBACTAM 3.375 GM VIAL IVPB ONE ×2 (09:34→09:39)
[2022-06-10] MEDS: ENOXAPARIN NA (PORCINE) 40 MG/0.4 ML DISP.SYRIN SQ SCH (09:45)
[2022-06-13 10:07] LABS: LYME PCR CSF Negative (Negative)
[2022-06-17 17:07] LABS: MUMPS AB IGG CSF < 5.0 AU/mL (<=10.9)
== END 2022-06-10 11:59 | disposition left against medical advice (07) | DRG 770 ==
LOC: JER 10:52 → JERBED 17:51 → J8W 22:10
PROVIDERS: ADMIT Family Medicine; ATTEND Internal Medicine
PROC: 009U3ZZ Drainage of Spinal Canal, Percutaneous Approach (ICD-10-PCS; principal; 2022-06-08)
DX: F11.23 Opioid dependence with withdrawal (principal); R50.9 Fever, unspecified; R19.7 Diarrhea, unspecified; R51.9 Headache, unspecified; D72.829 Elevated white blood cell count, unspecified
CPT/HCPCS: 0241U-QW; 36415; 70450-TC; 70551-TC; 71045-TC-FY; 76937; 76999; 80048; 80053; 80076; 80307; 81003; 82945; 82962; 83690; 83735; 84157; 84443; 84484; 85025; 85610; 85651; 85730; 86140; 86592; 86644; 86694; 86735; 86765; 86777; 86787; 86788; 86789; 87040; 87070; 87086; 87186; 87205; 87252; 87255; 87389; 87476; 87899; 93005; 93010; 93308; 99285-25

== ENCOUNTER 2022-11-04 10:14 | Inpatient (IN) | payer OTHER ==
[2022-11-04 10:49] VITALS: BMI 36.6
[2022-11-04] MEDS ORDERED: IBUPROFEN 400 MG TABLET (FP) PO PRN (10:59)
[2022-11-04] MEDS ORDERED: BISMUTH SUBSALICYLATE 262 MG/15 ML BTL PO PRN (10:59)
[2022-11-04] MEDS ORDERED: BENZOCAINE/MENTHOL (CHLORASEPTIC ) LOZENGE MM PRN (10:59)
[2022-11-04] MEDS ORDERED: ONDANSETRON *ODT* 4 MG TABLET SL PRN (10:59)
[2022-11-04] MEDS ORDERED: LOPERAMIDE HCL 2 MG CAPSULE PO PRN (10:59)
[2022-11-04] MEDS ORDERED: ACETAMINOPHEN 325 MG TABLET (FP) PO PRN ×2 (10:59)
[2022-11-04] MEDS ORDERED: DICYCLOMINE HCL 10 MG CAPSULE PO PRN (10:59)
[2022-11-04] MEDS ORDERED: MAG HYDROX/AL HYDROX/SIMETH 30 ML UNIT-DOSE CUP PO PRN (10:59)
[2022-11-04] MEDS ORDERED: NICOTINE POLACRILEX 2 MG GUM BUC PRN (10:59)
[2022-11-04] MEDS ORDERED: POLYETHYLENE GLYCOL (HEALTHYLAX) 3350 17 GM PACKET PO PRN (10:59)
[2022-11-04] MEDS ORDERED: NALOXONE HCL (KLOXXADO) 8 MG SPRAY NS PRN (10:59)
[2022-11-04] MEDS ORDERED: MAGNESIUM HYDROX 2400MG/30ML ORAL SUSPENSION 30 ML CUP PO PRN (10:59)
[2022-11-04] MEDS: chlordiazePOXIDE HCL 25 MG CAPSULE PO SCH ×3 (12:04→22:38)
[2022-11-04] MEDS: PRENATAL VITAMINS W/ FOLIC ACID TABLET (FP) PO SCH (12:05)
[2022-11-04 14:50] LABS: HEMATOCRIT 35.1 % (35.4-49); HEMOGLOBIN 12.1 GM/dL (11.7-16.9); MCH 28.2 pg (25.7-33.7); MCHC 34.3 g/dl (32.0-35.9); MEAN CELL VOLUME 82.3 fl (80-96); MEAN PLT VOLUME 8.3 fl (7.5-11.1); PLATELET COUNT 239 10^3/uL (134-434); RBC 4.27 M/mm3 (4.00-5.60); RDW 13.7 % (11.9-15.9); WHITE BLOOD COUNT 5.3 K/mm3 (4.0-10.0)
[2022-11-04] MEDS: METHOCARBAMOL 500 MG TABLET PO PRN (18:02)
[2022-11-04 18:50] LABS: ALBUMIN 3.9 g/dl (3.4-5.0)
[2022-11-04 18:51] LABS: BLOOD UREA NITROGEN 17.4 mg/dL (7-18)
[2022-11-04 18:53] LABS: CREATININE 0.9 mg/dL (0.55-1.3)
[2022-11-04 18:55] LABS: TOT PROT 8.2 g/dl (6.4-8.2)
[2022-11-04 18:56] LABS: BILIRUBIN,TOTAL 0.4 mg/dL (0.2-1)
[2022-11-04] MEDS ORDERED: chlordiazePOXIDE HCL 25 MG CAPSULE PO ONE (20:38)
[2022-11-04] MEDS: THIAMINE HCL 100 MG TABLET (FP) PO SCH (22:38)
[2022-11-04] MEDS: MELATONIN 5 MG TABLETS PO SCH (22:38)
[2022-11-04] MEDS: IBUPROFEN 600 MG TABLET (FP) PO PRN (22:39)
[2022-11-05] MEDS: chlordiazePOXIDE HCL 25 MG CAPSULE PO SCH ×4 (05:13→22:08)
[2022-11-05] MEDS ORDERED: methaDONE HCL 10 MG TABLET PO SCH (06:00)
[2022-11-05] MEDS: NICOTINE 10 MG CARTRIDGE (INHALER) IH PRN ×2 (07:23→13:09)
[2022-11-05] MEDS: PRENATAL VITAMINS W/ FOLIC ACID TABLET (FP) PO SCH (10:12)
[2022-11-05] MEDS: IBUPROFEN 600 MG TABLET (FP) PO PRN (13:11)
[2022-11-05] MEDS: METHOCARBAMOL 500 MG TABLET PO PRN ×2 (13:11→22:08)
[2022-11-05] MEDS ORDERED: chlordiazePOXIDE HCL 25 MG CAPSULE PO PRN (13:18)
[2022-11-05] MEDS: MELATONIN 5 MG TABLETS PO SCH (22:07)
[2022-11-05] MEDS: THIAMINE HCL 100 MG TABLET (FP) PO SCH (22:08)
[2022-11-05 22:36] VITALS: RESP 16
[2022-11-06] MEDS ORDERED: chlordiazePOXIDE HCL 25 MG CAPSULE PO SCH (05:00)
[2022-11-06] MEDS: NICOTINE 10 MG CARTRIDGE (INHALER) IH PRN (05:27)
[2022-11-06 06:12] VITALS: BP 123/80; PULSE 70; TEMP 98.2
[2022-11-07] MEDS ORDERED: chlordiazePOXIDE HCL 10 MG CAPSULE PO SCH (05:00)
[2022-11-08] MEDS ORDERED: chlordiazePOXIDE HCL 10 MG CAPSULE PO SCH (05:00)
[2022-11-09] MEDS ORDERED: chlordiazePOXIDE HCL 10 MG CAPSULE PO ONE (05:00)
== END 2022-11-06 08:52 | disposition left against medical advice (07) | DRG 770 ==
LOC: YASAS 10:14 → Y3N 11:05
PROVIDERS: ADMIT Allergy & Immunology; ATTEND Family Medicine
PROC: HZ2ZZZZ Detoxification Services for Substance Abuse Treatment (ICD-10-PCS; principal; 2022-11-04)
DX: F11.23 Opioid dependence with withdrawal (principal); F10.230 Alcohol dependence with withdrawal, uncomplicated; F14.20 Cocaine dependence, uncomplicated; F15.20 Other stimulant dependence, uncomplicated; F17.210 Nicotine dependence, cigarettes, uncomplicated; F41.9 Anxiety disorder, unspecified; F32.A Depression, unspecified; Z86.19 Personal history of other infectious and parasitic diseases
CPT/HCPCS: 36415; 80053; 85027; 86780; C9803-CS; U0003; U0005

== ENCOUNTER 2024-04-11 23:56 | Inpatient (IN) | payer OTHER ==
[2024-04-12 01:02] VITALS: BMI 30.5
[2024-04-12] MEDS ORDERED: LOPERAMIDE HCL 2 MG CAPSULE PO PRN (02:13)
[2024-04-12] MEDS ORDERED: DICYCLOMINE HCL 10 MG CAPSULE PO PRN (02:13)
[2024-04-12] MEDS ORDERED: IBUPROFEN 400 MG TABLET (FP) PO PRN (02:13)
[2024-04-12] MEDS ORDERED: ONDANSETRON *ODT* 4 MG TABLET SL PRN (02:13)
[2024-04-12] MEDS ORDERED: NALOXONE HCL 0.4 MG/ML VIAL IM PRN (02:13)
[2024-04-12] MEDS ORDERED: BENZONATATE 200 MG CAPSULE PO PRN (02:13)
[2024-04-12] MEDS ORDERED: POLYETHYLENE GLYCOL (HEALTHYLAX) 3350 17 GM PACKET PO PRN (02:13)
[2024-04-12] MEDS ORDERED: BISMUTH SUBSALICYLATE 524 MG/30 ML PO PRN (02:13)
[2024-04-12] MEDS ORDERED: IBUPROFEN 600 MG TABLET (FP) PO PRN (02:13)
[2024-04-12] MEDS ORDERED: NALOXONE (NARCAN) HCL 4 MG/0.1 ML SPRAY NS PRN (02:13)
[2024-04-12] MEDS ORDERED: MAGNESIUM HYDROX 2400MG/30ML ORAL SUSPENSION 30 ML CUP PO PRN (02:13)
[2024-04-12] MEDS ORDERED: MAG HYDROX/AL HYDROX/SIMETH 30 ML UNIT-DOSE CUP PO PRN (02:13)
[2024-04-12] MEDS ORDERED: guaiFENesin 600 MG TABLET.ER (FP) PO PRN (02:13)
[2024-04-12] MEDS ORDERED: BENZOCAINE/MENTHOL (CHLORASEPTIC ) LOZENGE MM PRN (02:13)
[2024-04-12] MEDS ORDERED: ACETAMINOPHEN 325 MG TABLET (FP) PO PRN (02:13)
[2024-04-12] MEDS ORDERED: methaDONE HCL 10 MG TABLET PO SCH (08:45)
[2024-04-12] MEDS: PRENATAL VITAMINS W/ FOLIC ACID TABLET (FP) PO SCH (10:15)
[2024-04-12] MEDS: NICOTINE 14 MG/24 HOURS TOPICAL PATCH TD SCH (10:15)
[2024-04-12] MEDS: chlordiazePOXIDE HCL 25 MG CAPSULE PO SCH (10:15)
[2024-04-12] MEDS: chlordiazePOXIDE HCL 25 MG CAPSULE PO PRN (19:59)
[2024-04-12] MEDS: THIAMINE 100 MG TABLET PO SCH (22:12)
[2024-04-12] MEDS: MELATONIN 5 MG TABLETS PO SCH (22:13)
[2024-04-12] MEDS: NICOTINE POLACRILEX 2 MG GUM BUC PRN (22:35)
[2024-04-13] MEDS: hydrOXYzine PAMOATE 25 MG CAPSULE (FP) PO PRN (08:37)
[2024-04-13] MEDS: METHOCARBAMOL 500 MG TABLET PO PRN (08:38)
[2024-04-13 11:45] LABS: HEMOGLOBIN 12.6 GM/dL (11.7-16.9); MCHC 34.1 g/dl (32.0-35.9); MEAN PLT VOLUME 11.2 fl (7.5-11.1); PLATELET COUNT 200 10^3/uL (134-434); RBC 4.35 M/mm3 (4.00-5.60); RDW 13.6 % (11.9-15.9); WHITE BLOOD COUNT 4.4 K/mm3 (4.0-10.0)
[2024-04-13 14:03] LABS: CHLORIDE 106 mmol/L (98-107); POTASSIUM 3.9 mmol/L (3.5-5.1); SODIUM 139 mmol/L (136-145)
[2024-04-13 14:12] LABS: CALCIUM 8.8 mg/dL (8.5-10.1)
[2024-04-13 14:13] LABS: ALBUMIN 3.6 g/dl (3.4-5.0); BLOOD UREA NITROGEN 25.4 mg/dL (7-18); CO2 26 mmol/L (21-32); GLUCOSE,RANDOM 88 mg/dL (74-106)
[2024-04-13 14:16] LABS: CREATININE 0.7 mg/dL (0.55-1.3); SGOT/AST 55 U/L (15-37); SGPT/ALT 100 U/L (13-61)
[2024-04-13 14:17] LABS: TOT PROT 7.2 g/dl (6.4-8.2)
[2024-04-13 14:18] LABS: BILIRUBIN,TOTAL 0.3 mg/dL (0.2-1)
[2024-04-13 14:19] LABS: ALK PHOS 68 U/L (45-117)
[2024-04-14] MEDS: chlordiazePOXIDE HCL 25 MG CAPSULE PO SCH (05:45)
[2024-04-15] MEDS ORDERED: chlordiazePOXIDE HCL 10 MG CAPSULE PO PRN
[2024-04-15] MEDS: chlordiazePOXIDE HCL 10 MG CAPSULE PO SCH (05:10)
[2024-04-15 12:49] VITALS: BP 117/63; PULSE 68; RESP 20; TEMP 97.8
[2024-04-16] MEDS ORDERED: chlordiazePOXIDE HCL 10 MG CAPSULE PO SCH (05:00)
[2024-04-17] MEDS ORDERED: chlordiazePOXIDE HCL 10 MG CAPSULE PO ONE (05:00)
== END 2024-04-15 13:50 | disposition home or self-care (01) | DRG 774 ==
LOC: YASAS 23:56 → Y6N 04-12 02:19
PROVIDERS: ADMIT Allergy & Immunology; ATTEND Surgery
PROC: HZ2ZZZZ Detoxification Services for Substance Abuse Treatment (ICD-10-PCS; principal; 2024-04-12)
DX: F10.230 Alcohol dependence with withdrawal, uncomplicated (principal); F14.20 Cocaine dependence, uncomplicated; F12.20 Cannabis dependence, uncomplicated; F17.210 Nicotine dependence, cigarettes, uncomplicated; F41.9 Anxiety disorder, unspecified; F32.A Depression, unspecified; J45.909 Unspecified asthma, uncomplicated; Z86.19 Personal history of other infectious and parasitic diseases
CPT/HCPCS: 36415; 80053; 80305; 80307; 85027; 86780; 93005; 93010